=== PATIENT | female | born 1965 | race Caucasian/White ===

== ENCOUNTER 2017-12-19 05:50 | Day surgery (SDC) | payer BC, OTHER ==
[2017-12-19] MEDS ORDERED: Ketamine HCl 50 MG/ML IV ONE (05:51)
[2017-12-19] MEDS ORDERED: DIPRIVAN 200 MG/20 ML IV ONE (05:51)
[2017-12-19] MEDS ORDERED: Lactated Ringers 1,000 ML IV SCH (06:30)
[2017-12-19] MEDS ORDERED: Lactated Ringers 1,000 ML IV ONE (08:02)
[2017-12-19 09:09] VITALS: O2SAT 100
[2017-12-19 09:43] VITALS: BP 124/83; PULSE 68
--- NOTE | 2017-12-19 10:01 | OP ---
SURGERY DATE/TIME: 12/19/2017 0808 PREOPERATIVE DIAGNOSIS: Screening colonoscopy. POSTOPERATIVE DIAGNOSIS: Two small sessile polyps in sigmoid colon. PROCEDURE: Colonoscopy. SURGEON: Tony Quezada M.D. ANESTHESIA: MAC by Christiano Partida CRNA. ESTIMATED BLOOD LOSS: Minimal. SPECIMENS: Two cold forceps polypectomies from the sigmoid colon. DESCRIPTION OF PROCEDURE: After informed written consent was obtained, the patient was taken to the endoscopy suite. She underwent monitored anesthesia and digital rectal exam showed normal sphincter tone and mild external hemorrhoids. The scope was inserted into the rectum and sequentially the entire colonic mucosa was traversed. The level of cecum was reached and verified with direct visualization of ileocecal valve. Upon withdrawal careful mucosal inspection revealed no gross abnormalities. There were two very small sessile polyps present in the sigmoid colon which were grasped with forceps and removed in its entirety with minimal blood loss. The same was repeated on the other lesion. Both were in the proximal sigmoid colon and seemed to be removed in their entirety with minimal blood loss. Prior to withdrawal retroflexion was performed and showed no obvious lesions. The scope was removed and the patient was transferred to the recovery room in excellent condition. I have advised that she follow up in a week for pathology results.
== END 2017-12-19 10:14 | disposition home or self-care (01) ==
LOC: SDC 05:50
PROVIDERS: ATTEND Family Medicine
PROC: 0DBN8ZX Excision of Sigmoid Colon, Via Natural or Artificial Opening Endoscopic, Diagnostic (ICD-10-PCS; principal; 2017-12-19)
DX: Z12.11 Encounter for screening for malignant neoplasm of colon (principal); K63.5 Polyp of colon; E11.9 Type 2 diabetes mellitus without complications; I10 Essential (primary) hypertension
CPT/HCPCS: 82962; 88305; J2704

== ENCOUNTER 2025-07-08 06:35 | Day surgery (SDC) | payer OTHER ==
[2025-07-08 07:02] VITALS: RESP 16
[2025-07-08] MEDS ORDERED: Xylocaine-Mpf 2% 5 Ml Vial ONE (08:10)
[2025-07-08] MEDS ORDERED: propofoL IV ONE (08:10)
[2025-07-08 09:11] VITALS: BP 147/89; PULSE 69; TEMP 98; O2SAT 98
--- NOTE | 2025-07-09 09:49 | OP ---
SURGERY DATE/TIME: 07/08/2025 [id number] PREOPERATIVE DIAGNOSIS: Screening colonoscopy. POSTOPERATIVE DIAGNOSIS: Normal colon. PROCEDURE PERFORMED: Colonoscopy. ANESTHESIA: MAC by Pako Burks CRNA. ESTIMATED BLOOD LOSS: None. SPECIMENS: None. DESCRIPTION OF PROCEDURE AND FINDINGS: After informed written consent was obtained, the patient was taken to the endoscopy suite. She underwent moderate anesthesia after she was placed in the left lateral decubitus position. Digital rectal exam showed normal sphincter tone and no internal lesions. The scope was inserted into the rectum, and sequentially the entire colonic mucosa was traversed. Level of the cecum was reached and verified with direct visualization of the ileocecal valve. Upon withdrawal, careful mucosal inspection revealed no gross abnormalities. Prior to withdrawal, retroflexion was performed and showed no internal lesions. Patient was transferred to the recovery room in good condition.
== END 2025-07-08 09:20 | disposition home or self-care (01) ==
LOC: SDC 06:35
PROVIDERS: ATTEND Family Medicine
DX: Z12.11 Encounter for screening for malignant neoplasm of colon (principal); E11.9 Type 2 diabetes mellitus without complications